=== PATIENT | male | born 1955 | race Caucasian/White ===

== ENCOUNTER 2019-03-27 16:40 | Outpatient (CLI) | payer OTHER ==
[~2019-03-27 16:40] MED LIST: ALLO100T64 PO; ATEN-105 PO; ATEN25TA PO; CEFD300C37 PO; FOLI-17 PO; GABA300C10 PO; HCTZ; HYDR25TA6 PO; LEVO150T5 PO; LEVO25TA2 PO; MELA1TAB6 PO; THIA100T67 PO; TRAZ50TA66 PO; hydro; levothyroxine
== END 2019-03-27 23:59 | disposition home or self-care (01) ==
LOC: RAD 16:40
PROVIDERS: ATTEND Family Medicine
DX: S79.811A Other specified injuries of right hip, initial encounter (principal); K40.90 Unilateral inguinal hernia, without obstruction or gangrene, not specified as recurrent; I70.0 Atherosclerosis of aorta; I12.9 Hypertensive chronic kidney disease with stage 1 through stage 4 chronic kidney disease, or unspecified chronic kidney disease; N18.9 Chronic kidney disease, unspecified; E03.9 Hypothyroidism, unspecified; F10.10 Alcohol abuse, uncomplicated; Z85.21 Personal history of malignant neoplasm of larynx; Z92.21 Personal history of antineoplastic chemotherapy; Z92.3 Personal history of irradiation; Z90.89 Acquired absence of other organs; Z79.899 Other long term (current) drug therapy; Z87.891 Personal history of nicotine dependence; W19.XXXA Unspecified fall, initial encounter; Y93.89 Activity, other specified; Y92.89 Other specified places as the place of occurrence of the external cause; Y99.8 Other external cause status
CPT/HCPCS: 72192

== ENCOUNTER 2019-04-14 17:09 | Emergency (ER) | payer MEDICARE, OTHER ==
[~2019-04-14] VITALS: Ht 175.3 cm; Wt 76.9 kg
--- NOTE | 2019-04-14 19:34 | NUR ---
PT CAME IN CO OF RIGHT MIDDLE FINGER SWELLING. "IT HAS BEEN SWOLLEN FOR ABOUT A YEAR AND RECENTLY IT TRIPLIED IN SIZE. AND PUSS SQUEEZES OUT OF IT". PT IN BED. CALL LIGHT WITHIN REACH.
[2019-04-14] MEDS ORDERED: OXYcodone/APAP 5/325MG TABLET ONE (19:49)
[2019-04-14] MEDS ORDERED: LIDOCAINE-MPF 1%, 5ML ONE ×2 (19:52→21:53)
[2019-04-14] MEDS ORDERED: LIDOCAINE-MPF 1%, 5ML INFIL ONE (20:00)
[2019-04-14] MEDS ORDERED: OXYcodone/APAP 5/325MG TABLET PO ONE (20:00)
[2019-04-14 20:08] LABS: BASOPHILS # (AUTO) 0.03 x10^3/uL (0-0.1); BASOPHILS % (AUTO) 0 % (0-1); EOSINOPHILS # (AUTO) 0.17 x10^3/uL (0-0.4); EOSINOPHILS % (AUTO) 2 % (1-7); LYMPHOCYTES # (AUTO) 1.16 x10^3/uL (1-3.4); LYMPHOCYTES % (AUTO) 13 % (22-44); MD NO; MEAN CORPUSCULAR HEMOGLOBIN 33.9 pg (27.5-34.5); MEAN CORPUSCULAR HGB CONC 33.1 g/dL (33.2-36.2); MEAN CORPUSCULAR VOLUME 102.4 fL (81-97); MEAN PLATELET VOLUME 7.2 fL (7.4-10.4); MONOCYTES # (AUTO) 0.37 x10^3/uL (0.2-0.8); MONOCYTES % (AUTO) 4 % (2-9); NEUTROPHILS # (AUTO) 7.58 x10^3/uL (1.8-6.8); NEUTROPHILS % (AUTO) 81 % (42-75); PLATELET COUNT 409 x10^3/uL (130-400); RED BLOOD COUNT 3.51 x10^6/uL (4.38-5.82); RED CELL DISTRIBUTION WIDTH 12.6 % (9.4-14.8)
[2019-04-14 20:09] LABS: HCT (SEDRATE) 35.5 % (39.2-51.8)
[2019-04-14 20:23] LABS: ALBUMIN 3.2 g/dL (3.4-5.0); ANION GAP 9 mmol/L (5-15); CALCIUM 9.5 mg/dL (8.5-10.1); CHLORIDE 109 mmol/L (98-107); CREATININE 3.01 mg/dL (0.7-1.3)
[2019-04-14 21:32] VITALS: BP 117/70
== END 2019-04-14 22:22 | disposition home or self-care (01) ==
LOC: ED 19:50
DX: M10.041 Idiopathic gout, right hand (principal); I10 Essential (primary) hypertension
CPT/HCPCS: 20600; 36415; 80048; 82040; 84550; 85025; 85651; 86140; 87070; 87205; 89060; 99284

== ENCOUNTER 2020-08-08 08:03 | Inpatient (IN) | payer MEDICARE ==
[~2020-08-08] VITALS: Ht 175.3 cm; Wt 82.9 kg
[~2020-08-08 08:03] MED LIST changes: -FOLI-17 PO; +FOLI1TAB32 PO; +MELA1TAB46 PO; -MELA1TAB6 PO
[2020-08-08] MEDS ORDERED: ASPIRIN 81 MG TABLET CHEW ONE (08:20)
[2020-08-08] MEDS ORDERED: MORPHINE SULFATE 4 MG/ML, 1ML ONE (08:20)
[2020-08-08] MEDS ORDERED: NITROGLYCERIN SINGLE TAB 0.4 MG SL ONE ×2 (08:20→10:32)
--- NOTE | 2020-08-08 08:21 | NUR ---
Pt BIB EMS due to rxn to clyndamyacin for tooth infection. Rxn caused nausea, vomitting, midsternal chest pain. Pt placed on all monitors, EKG done upon arrival to room, pt placed into gown, given warm blanket for comfort. IV placed in LAC by EMS, pt given 4 zofran and tylenol in route. Dr. Hoffman at bedside to discuss POC. CP started yesterday at 4pm and has been intermittent, aggrivated by activity, relieved w/rest, described as sharp and achey, rated 8/10. No other requests at this time.
[2020-08-08] MEDS: NITROGLYCERIN SINGLE TAB 0.4 MG SL PRN ×5 (08:22→15:09)
--- NOTE | 2020-08-08 08:22 | NUR ---
Pt placed on O2 NC @2L for comfort due to CP
[2020-08-08] MEDS ORDERED: MORPHINE SULFATE 4 MG/ML, 1ML IVPush PRN (08:30)
[2020-08-08] MEDS ORDERED: ASPIRIN 81 MG TABLET CHEW PO ONE (08:30)
[2020-08-08] MEDS ORDERED: SODIUM CHLORIDE FLUSH 10ML SYR IVF ONE (08:30)
--- NOTE | 2020-08-08 08:32 | NUR ---
Pt medicated per MAR
--- NOTE | 2020-08-08 08:42 | NUR ---
Pt resting comfortbaly in bed with eyes closed, O2 sat at 98% on RA, VSS, NADN
[2020-08-08 09:37] LABS: MEAN CORPUSCULAR HEMOGLOBIN 30.7 pg (27.5-34.5); MEAN CORPUSCULAR HGB CONC 33.4 g/dL (33.2-36.2); MEAN PLATELET VOLUME 7.5 fL (7.4-10.4); PLATELET COUNT 237 x10^3/uL (130-400); RED BLOOD COUNT 4.73 x10^6/uL (4.38-5.82); RED CELL DISTRIBUTION WIDTH 14.1 % (9.4-14.8)
[2020-08-08 09:52] LABS: ALANINE AMINOTRANSFERASE 31 U/L (12-78); ANION GAP 17 mmol/L (5-15); CALCIUM 10.6 mg/dL (8.5-10.1); CHLORIDE 100 mmol/L (98-107); CREATININE 2.82 mg/dL (0.7-1.3)
[2020-08-08 09:56] LABS: ALKALINE PHOSPHATASE 94 U/L (45-117); BILIRUBIN,TOTAL 0.4 mg/dL (0.2-1.0); TOTAL PROTEIN 8.8 g/dL (6.4-8.2)
[2020-08-08] MEDS ORDERED: AZITHROMYCIN 500 MG in SODIUM CHLORIDE 0.9% 250 ML IVPB ONE (10:00)
[2020-08-08] MEDS ORDERED: SODIUM CHLORIDE FLUSH 10ML SYR IVF PRN (10:00)
[2020-08-08] MEDS ORDERED: CEFTRIAXONE 1,000 MG in DEXTROSE 5% 50 ML IVPB ONE (10:00)
--- NOTE | 2020-08-08 10:00 | NUR ---
TP RN: TROPONIN 21.00 PRIMARY RN AND ERP UPDATED.
[2020-08-08 10:08] LABS: MD YES
[2020-08-08] MEDS ORDERED: HEPARIN 5,000 UNITS/ML, 1ML ONE (10:15)
[2020-08-08] MEDS ORDERED: HEPARIN 25,000 UNITS/250ML PMX 250 ML ONE (10:17)
[2020-08-08 10:19] LABS: BAND#(MANUAL) 0.96 x10^3/uL; BANDS%(MANUAL) 4 % (0-7); LYMPH#(MANUAL) 1.44 x10^3/uL (1-3.4); LYMPHS% (MANUAL) 6 % (22-44); MONOS#(MANUAL) 0.72 x10^3/uL (0.3-2.7); MONOS% (MANUAL) 3 % (2-9); SEG#(MANUAL) 20.88 x10^3/uL (1.8-6.8); SEGS% (MANUAL) 87 % (42-75)
[2020-08-08 10:20] LABS: <PLATELET ESTIMATE> ADEQUATE; <PLT MORPHOLOGY> NORMAL PLT MORPH; <RBC MORPHOLOGY> NORMAL
[2020-08-08] MEDS: HEPARIN 25,000 UNITS/250ML PMX 250 ML IV PRN ×2 (10:30→19:29)
[2020-08-08] MEDS ORDERED: HEPARIN 5,000 UNITS/ML, 1ML IV ONE (10:30)
--- NOTE | 2020-08-08 10:37 | NUR ---
2nd Nitro admin per MD Hoffman
--- NOTE | 2020-08-08 10:50 | NUR ---
Report given to Millicent GARCIA
[2020-08-08] MEDS ORDERED: ONDANSETRON 2MG/ML, 2ML IVPush PRN (11:00)
[2020-08-08] MEDS ORDERED: hydrALAzine 20 MG/ML, 1ML IVPush PRN (11:00)
[2020-08-08] MEDS ORDERED: METHOCARBAMOL 500 MG TABLET PO PRN (11:00)
[2020-08-08] MEDS ORDERED: GUAIFENESIN/DM 200-20MG, 10ML UDC PO PRN (11:00)
[2020-08-08] MEDS ORDERED: TEMAZEPAM 15 MG CAPSULE PO PRN (11:00)
--- NOTE | 2020-08-08 11:06 | NUR ---
125 ml/hr of NS per [facility]
--- NOTE | 2020-08-08 11:07 | NUR ---
reported antiXA of greater than 9 to MD NICHOLAS. YU stated to continue heparin drip per order.
--- NOTE | 2020-08-08 11:08 | NUR ---
TP RN: CRITICAL INTIAL ANTI XA >1.1, REPORTED TO PRIMARY RN AND . PER DO NOT D/C HEPARIN.
[2020-08-08 11:22] VITALS: BP 142/94
[2020-08-08] MEDS: SODIUM CHLORIDE 0.9% 1,000 ML IV SCH ×3 (11:23→17:14)
[2020-08-08] MEDS: morphine SULFATE 10 MG/ML, 1ML IVPush PRN ×2 (13:22→18:45)
[2020-08-08 14:45] VITALS: BP 155/102
[2020-08-08] MEDS ORDERED: NITROGLYCERIN 0.4 MG BOTTLE (25 TABS) SL ONE (14:51)
[2020-08-08 15:00] VITALS: BP 143/96
[2020-08-08 15:07] VITALS: BP 138/91
[2020-08-08 15:17] VITALS: BP 136/92
[2020-08-08] MEDS ORDERED: VERAPAMIL 2.5 MG/ML, 2ML ONE (15:26)
[2020-08-08] MEDS ORDERED: LIDOCAINE-MPF 1%, 5ML ONE (15:26)
[2020-08-08] MEDS ORDERED: MIDAZOLAM 1 MG/ML, 2ML ONE (15:26)
[2020-08-08] MEDS ORDERED: FENTANYL PF 100 MCG/2ML ONE (15:26)
[2020-08-08] MEDS ORDERED: MIDAZOLAM 1 MG/ML, 5ML ONE (15:51)
[2020-08-08] MEDS ORDERED: HEPARIN 1,000 UNITS/ML, 10ML ONE (15:51)
[2020-08-08] MEDS ORDERED: PRASUGREL 10 MG TABLET ONE (15:51)
[2020-08-08 18:55] VITALS: BP 130/86
[2020-08-08 19:13] LABS: ANION GAP 11 mmol/L (5-15); CALCIUM 10.4 mg/dL (8.5-10.1); CHLORIDE 102 mmol/L (98-107)
[2020-08-08] MEDS ORDERED: ATENOLOL 50 MG TABLET ONE (20:38)
[2020-08-08] MEDS: ATORVASTATIN 80 MG TABLET PO SCH (20:41)
[2020-08-08] MEDS: TRAZODONE 50MG TABLET PO SCH (20:41)
[2020-08-08] MEDS: MELATONIN 3 MG TABLET PO SCH (20:42)
[2020-08-08] MEDS: ATENOLOL 100 MG TABLET PO SCH (20:43)
[2020-08-09] MEDS: SODIUM CHLORIDE 0.9% 1,000 ML IV SCH ×3 (01:30→11:30)
[2020-08-09 01:41] VITALS: BP 136/90
[2020-08-09] MEDS: HEPARIN 5,000 UNITS/ML, 1ML IV PRN ×3 (02:33→17:59)
[2020-08-09] MEDS: HEPARIN 25,000 UNITS/250ML PMX 250 ML IV PRN ×2 (02:36→15:14)
[2020-08-09] MEDS: HYDROcodone/APAP 5/325 TABLET PO PRN ×2 (02:38→05:49)
[2020-08-09 05:15] LABS: BASOPHILS % (AUTO) 0 % (0-1); EOSINOPHILS % (AUTO) 0 % (1-7); LYMPHOCYTES % (AUTO) 7 % (22-44); MEAN CORPUSCULAR HEMOGLOBIN 30.5 pg (27.5-34.5); MEAN CORPUSCULAR HGB CONC 33.7 g/dL (33.2-36.2); MONOCYTES % (AUTO) 8 % (2-9); NEUTROPHILS % (AUTO) 85 % (42-75); PLATELET COUNT 259 x10^3/uL (130-400); RED BLOOD COUNT 4.15 x10^6/uL (4.38-5.82); RED CELL DISTRIBUTION WIDTH 14.3 % (9.4-14.8)
[2020-08-09 05:24] LABS: ANION GAP 10 mmol/L (5-15); CALCIUM 9.1 mg/dL (8.5-10.1); CHLORIDE 103 mmol/L (98-107); CREATININE 2.36 mg/dL (0.7-1.3)
[2020-08-09 05:44] LABS: MD NO
[2020-08-09] MEDS: LEVOTHYROXINE 150 MCG TABLET PO SCH (05:49)
[2020-08-09 06:19] VITALS: BP 142/94
[2020-08-09 06:24] VITALS: BP 131/88
[2020-08-09] MEDS ORDERED: NITROGLYCERIN 0.4 MG BOTTLE (25 TABS) SL PRN (06:30)
[2020-08-09] MEDS ORDERED: MAGNESIUM OXIDE 400 MG TABLET PO ONE (07:00)
[2020-08-09 08:43] VITALS: BP 138/96
[2020-08-09] MEDS: ATENOLOL 100 MG TABLET PO SCH (08:45)
[2020-08-09] MEDS ORDERED: NITROGLYCERIN/D5W PMX 250 ML IV PRN ×2 (09:30→12:00)
[2020-08-09] MEDS ORDERED: DOXYCYCLINE 100MG TABLET PO SCH (10:30)
[2020-08-09] MEDS ORDERED: FUROSEMIDE 20 MG/2 ML ONE (11:41)
[2020-08-09] MEDS ORDERED: PHARMACY MAY ADJ FOR RENAL FX MC PRN (12:00)
[2020-08-09] MEDS ORDERED: FUROSEMIDE 20 MG/2 ML IV ONE (12:00)
[2020-08-09] MEDS ORDERED: FUROSEMIDE 40 MG/4 ML ONE (12:15)
[2020-08-09] MEDS ORDERED: GLUCAGON 1 MG IM PRN (12:30)
[2020-08-09] MEDS ORDERED: DEXTROSE 50%, 50ML SYRINGE IVPush PRN (12:30)
[2020-08-09] MEDS ORDERED: FUROSEMIDE 100 MG/10 ML IV ONE (12:30)
[2020-08-09] MEDS ORDERED: DEXTROSE 4 GM TAB.CHEW PO PRN (12:30)
[2020-08-09] MEDS: MEROPENEM 1 GM in SODIUM CHLORIDE 0.9% 100 ML IV SCH (12:37)
[2020-08-09] MEDS: INSULIN LISPRO 100 UNITS/ML, PEN SQ-INSULIN SCH ×2 (12:47→18:57)
[2020-08-09] MEDS ORDERED: MAGNESIUM SULFATE PMX 2GM/50ML 50 ML IV ONE (13:00)
[2020-08-09] MEDS: LINEZOLID PMX 600MG/300ML 300 ML IV SCH (13:11)
[2020-08-09] MEDS: ACETAMINOPHEN 325 MG TABLET PO PRN (16:32)
[2020-08-09] MEDS ORDERED: CARVEDILOL 6.25 MG TABLET ONE (17:55)
[2020-08-09] MEDS: CARVEDILOL 25 MG TABLET PO SCH (18:09)
[2020-08-09] MEDS: ATORVASTATIN 80 MG TABLET PO SCH (20:34)
[2020-08-09] MEDS: SODIUM CHLORIDE FLUSH 10ML SYR IVF SCH (20:35)
[2020-08-09] MEDS: MELATONIN 3 MG TABLET PO SCH (20:40)
[2020-08-09] MEDS: TRAZODONE 50MG TABLET PO SCH (21:00)
[2020-08-10] MEDS: MEROPENEM 1 GM in SODIUM CHLORIDE 0.9% 100 ML IV SCH ×2 (00:12→12:28)
[2020-08-10] MEDS: INSULIN LISPRO 100 UNITS/ML, PEN SQ-INSULIN SCH ×4 (01:02→19:00)
[2020-08-10] MEDS: LINEZOLID PMX 600MG/300ML 300 ML IV SCH ×2 (01:02→13:13)
[2020-08-10 04:40] LABS: ANION GAP 9 mmol/L (5-15); BASOPHILS % (AUTO) 0 % (0-1); CALCIUM 8.4 mg/dL (8.5-10.1); CHLORIDE 99 mmol/L (98-107); CREATININE 2.67 mg/dL (0.7-1.3); EOSINOPHILS % (AUTO) 0 % (1-7); LYMPHOCYTES % (AUTO) 12 % (22-44); MEAN CORPUSCULAR HEMOGLOBIN 30.6 pg (27.5-34.5); MEAN CORPUSCULAR HGB CONC 33.8 g/dL (33.2-36.2); MEAN PLATELET VOLUME 7.5 fL (7.4-10.4); MONOCYTES % (AUTO) 9 % (2-9); NEUTROPHILS % (AUTO) 79 % (42-75); PLATELET COUNT 233 x10^3/uL (130-400); RED BLOOD COUNT 3.79 x10^6/uL (4.38-5.82); RED CELL DISTRIBUTION WIDTH 13.9 % (9.4-14.8)
[2020-08-10 04:48] LABS: MD NO
[2020-08-10] MEDS: LEVOTHYROXINE 150 MCG TABLET PO SCH (06:12)
[2020-08-10] MEDS: CARVEDILOL 25 MG TABLET PO SCH (06:13)
[2020-08-10] MEDS: HEPARIN 5,000 UNITS/ML, 1ML IV PRN ×3 (06:53→22:07)
[2020-08-10] MEDS: ASPIRIN 81 MG TABLET EC PO SCH (09:14)
[2020-08-10] MEDS: SODIUM CHLORIDE FLUSH 10ML SYR IVF SCH ×2 (09:16→20:51)
[2020-08-10] MEDS: HYDROcodone/APAP 5/325 TABLET PO PRN (10:33)
[2020-08-10 10:54] LABS: MICROSCOPIC AUTO
[2020-08-10] MEDS: HEPARIN 25,000 UNITS/250ML PMX 250 ML IV PRN (12:30)
[2020-08-10] MEDS: CARVEDILOL 3.125 MG TABLET PO SCH (17:49)
[2020-08-10] MEDS: ATORVASTATIN 80 MG TABLET PO SCH (20:51)
[2020-08-10] MEDS: TRAZODONE 50MG TABLET PO SCH (20:51)
[2020-08-10] MEDS: MELATONIN 3 MG TABLET PO SCH (20:51)
[2020-08-11] MEDS: MEROPENEM 1 GM in SODIUM CHLORIDE 0.9% 100 ML IV SCH (00:09)
[2020-08-11] MEDS: LINEZOLID PMX 600MG/300ML 300 ML IV SCH (00:44)
[2020-08-11] MEDS: INSULIN LISPRO 100 UNITS/ML, PEN SQ-INSULIN SCH ×4 (00:46→20:47)
[2020-08-11 04:32] LABS: BASOPHILS % (AUTO) 0 % (0-1); EOSINOPHILS % (AUTO) 0 % (1-7); LYMPHOCYTES % (AUTO) 11 % (22-44); MD NO; MEAN CORPUSCULAR HEMOGLOBIN 30.3 pg (27.5-34.5); MEAN CORPUSCULAR HGB CONC 33.8 g/dL (33.2-36.2); MEAN PLATELET VOLUME 7.8 fL (7.4-10.4); MONOCYTES % (AUTO) 9 % (2-9); NEUTROPHILS % (AUTO) 79 % (42-75); PLATELET COUNT 248 x10^3/uL (130-400); RED BLOOD COUNT 4.04 x10^6/uL (4.38-5.82)
[2020-08-11 04:38] LABS: ANION GAP 9 mmol/L (5-15); CALCIUM 8.4 mg/dL (8.5-10.1); CHLORIDE 100 mmol/L (98-107); CREATININE 2.31 mg/dL (0.7-1.3)
[2020-08-11] MEDS: CARVEDILOL 3.125 MG TABLET PO SCH ×2 (06:03→16:46)
[2020-08-11] MEDS: LEVOTHYROXINE 150 MCG TABLET PO SCH (06:03)
[2020-08-11] MEDS: ASPIRIN 81 MG TABLET EC PO SCH (06:03)
[2020-08-11] MEDS: HEPARIN 25,000 UNITS/250ML PMX 250 ML IV PRN ×2 (06:06→23:29)
[2020-08-11] MEDS: SODIUM CHLORIDE FLUSH 10ML SYR IVF SCH ×2 (08:42→21:00)
[2020-08-11] MEDS ORDERED: FUROSEMIDE 100 MG/10 ML IV ONE (09:00)
[2020-08-11] MEDS ORDERED: POTASSIUM CHLORIDE 20 MEQ TAB.ER.PRT PO SCH (09:30)
[2020-08-11] MEDS: FUROSEMIDE 100 MG in SODIUM CHLORIDE 0.9% 90 ML IV PRN ×2 (10:13→23:32)
[2020-08-11] MEDS: HEPARIN 5,000 UNITS/ML, 1ML IV PRN (11:46)
[2020-08-11] MEDS ORDERED: NITROGLYCERIN/D5W PMX 250 ML IV PRN (12:00)
[2020-08-11] MEDS ORDERED: AMPICILLIN/SULBACTAM 1,500 MG in SODIUM CHLORIDE 0.9% 50 ML IV SCH (12:30)
[2020-08-11] MEDS: MEROPENEM 500 MG in SODIUM CHLORIDE 0.9% 100 ML IV SCH (13:17)
[2020-08-11] MEDS: HYDROcodone/APAP 5/325 TABLET PO PRN ×2 (15:41→22:46)
[2020-08-11] MEDS: KSCALE TO 4.0 IV SCH ×2 (18:33→19:00)
[2020-08-11] MEDS: ATORVASTATIN 80 MG TABLET PO SCH (20:46)
[2020-08-11] MEDS: TRAZODONE 50MG TABLET PO SCH (20:46)
[2020-08-11] MEDS: MELATONIN 3 MG TABLET PO SCH (20:47)
[2020-08-11] MEDS ORDERED: POTASSIUM CHLORIDE PMX 100 ML IV ONE (21:00)
[2020-08-12] MEDS: MEROPENEM 500 MG in SODIUM CHLORIDE 0.9% 100 ML IV SCH ×2 (00:48→13:38)
[2020-08-12] MEDS: KSCALE TO 4.0 IV SCH ×4 (01:23→20:10)
[2020-08-12] MEDS ORDERED: POTASSIUM CHLORIDE PMX 100 ML IV ONE ×3 (01:30→20:00)
[2020-08-12] MEDS: INSULIN LISPRO 100 UNITS/ML, PEN SQ-INSULIN SCH ×4 (03:00→19:58)
[2020-08-12] MEDS: LEVOTHYROXINE 150 MCG TABLET PO SCH (05:53)
[2020-08-12] MEDS: ASPIRIN 81 MG TABLET EC PO SCH (05:53)
[2020-08-12 06:27] LABS: BASOPHILS % (AUTO) 0 % (0-1); EOSINOPHILS % (AUTO) 1 % (1-7); LYMPHOCYTES % (AUTO) 16 % (22-44); MEAN CORPUSCULAR HEMOGLOBIN 30.2 pg (27.5-34.5); MEAN CORPUSCULAR HGB CONC 33.5 g/dL (33.2-36.2); MEAN PLATELET VOLUME 7.7 fL (7.4-10.4); MONOCYTES % (AUTO) 10 % (2-9); NEUTROPHILS % (AUTO) 73 % (42-75); PLATELET COUNT 275 x10^3/uL (130-400); RED BLOOD COUNT 3.74 x10^6/uL (4.38-5.82); RED CELL DISTRIBUTION WIDTH 14.1 % (9.4-14.8)
[2020-08-12 06:28] LABS: MD NO
[2020-08-12 06:38] LABS: ANION GAP 10 mmol/L (5-15); CALCIUM 8.9 mg/dL (8.5-10.1); CHLORIDE 101 mmol/L (98-107)
[2020-08-12 06:40] LABS: CREATININE 2.26 mg/dL (0.7-1.3)
[2020-08-12] MEDS ORDERED: COLCHICINE 0.6 MG CAPSULE PO ONE (08:00)
[2020-08-12] MEDS ORDERED: CARVEDILOL 6.25 MG TABLET ONE (08:52)
[2020-08-12] MEDS ORDERED: AMIODARONE 450 MG in DEXTROSE 5% 241 ML IV PRN (09:00)
[2020-08-12] MEDS ORDERED: AMIODARONE 300 MG in DEXTROSE 5% 100 ML IV ONE (09:00)
[2020-08-12] MEDS: morphine SULFATE 10 MG/ML, 1ML IVPush PRN (09:08)
[2020-08-12] MEDS: LIDODERM 5% PATCH TD SCH (09:08)
[2020-08-12] MEDS ORDERED: METOPROLOL 1 MG/ML, 5ML ONE (09:09)
[2020-08-12] MEDS: SODIUM CHLORIDE FLUSH 10ML SYR IVF SCH ×2 (09:09→21:20)
[2020-08-12] MEDS ORDERED: DIGOXIN 0.25 MG/ML, 2ML ONE ×2 (09:12→14:08)
[2020-08-12] MEDS ORDERED: FILTER 0.22 MICRON FOR AMIODARONE IV PRN (09:30)
[2020-08-12] MEDS ORDERED: METOPROLOL 1 MG/ML, 5ML IVPush ONE ×2 (09:30→10:30)
[2020-08-12] MEDS ORDERED: DIGOXIN 0.25 MG/ML, 2ML IVPush ONE ×2 (09:30→14:30)
[2020-08-12] MEDS ORDERED: AMIODARONE 150 MG in DEXTROSE 5% 100 ML IV ONE (12:00)
[2020-08-12] MEDS: HEPARIN 25,000 UNITS/250ML PMX 250 ML IV PRN (13:02)
[2020-08-12] MEDS: AMIODARONE 450 MG in DEXTROSE 5% 241 ML IV PRN (16:02)
[2020-08-12] MEDS: MEROPENEM 500 MG in SODIUM CHLORIDE 0.9% 50 ML IV SCH (16:22)
[2020-08-12] MEDS: CARVEDILOL 6.25 MG TABLET PO SCH (18:43)
[2020-08-12] MEDS: FUROSEMIDE 100 MG in SODIUM CHLORIDE 0.9% 90 ML IV PRN (20:10)
[2020-08-12] MEDS: TRAZODONE 50MG TABLET PO SCH (21:20)
[2020-08-12] MEDS: ATORVASTATIN 80 MG TABLET PO SCH (21:21)
[2020-08-12] MEDS: MELATONIN 3 MG TABLET PO SCH (21:21)
[2020-08-13] MEDS: MEROPENEM 500 MG in SODIUM CHLORIDE 0.9% 50 ML IV SCH (01:58)
[2020-08-13] MEDS: KSCALE TO 4.0 IV SCH ×4 (02:00→23:00)
[2020-08-13] MEDS: INSULIN LISPRO 100 UNITS/ML, PEN SQ-INSULIN SCH ×4 (02:18→20:44)
[2020-08-13] MEDS: ASPIRIN 81 MG TABLET EC PO SCH (05:23)
[2020-08-13] MEDS: CARVEDILOL 6.25 MG TABLET PO SCH ×3 (05:24→23:10)
[2020-08-13] MEDS: LEVOTHYROXINE 150 MCG TABLET PO SCH (05:24)
[2020-08-13 05:44] LABS: BASOPHILS % (AUTO) 0 % (0-1); EOSINOPHILS % (AUTO) 2 % (1-7); LYMPHOCYTES % (AUTO) 16 % (22-44); MEAN CORPUSCULAR HEMOGLOBIN 30.7 pg (27.5-34.5); MEAN PLATELET VOLUME 7.4 fL (7.4-10.4); MONOCYTES % (AUTO) 10 % (2-9); NEUTROPHILS % (AUTO) 71 % (42-75); PLATELET COUNT 277 x10^3/uL (130-400); RED BLOOD COUNT 3.63 x10^6/uL (4.38-5.82); RED CELL DISTRIBUTION WIDTH 13.8 % (9.4-14.8)
[2020-08-13 05:51] LABS: ANION GAP 10 mmol/L (5-15); CALCIUM 9.2 mg/dL (8.5-10.1); CHLORIDE 97 mmol/L (98-107); CREATININE 2.43 mg/dL (0.7-1.3)
[2020-08-13 05:53] LABS: MD NO
[2020-08-13] MEDS: FUROSEMIDE 100 MG in SODIUM CHLORIDE 0.9% 90 ML IV PRN (06:34)
[2020-08-13] MEDS: AMIODARONE 450 MG in DEXTROSE 5% 241 ML IV PRN ×2 (06:35→23:12)
[2020-08-13] MEDS ORDERED: PRASUGREL 10 MG TABLET PO ONE (09:30)
[2020-08-13] MEDS: LIDODERM 5% PATCH TD SCH (09:49)
[2020-08-13] MEDS: SODIUM CHLORIDE FLUSH 10ML SYR IVF SCH ×2 (10:34→20:42)
[2020-08-13] MEDS ORDERED: POTASSIUM CHLORIDE PMX 100 ML IV ONE (15:00)
[2020-08-13] MEDS: PRASUGREL 10 MG TABLET PO SCH (15:54)
[2020-08-13] MEDS: ATORVASTATIN 80 MG TABLET PO SCH (20:42)
[2020-08-13] MEDS: HYDROcodone/APAP 5/325 TABLET PO PRN (20:42)
[2020-08-13] MEDS: TRAZODONE 50MG TABLET PO SCH (23:09)
[2020-08-13] MEDS: MELATONIN 3 MG TABLET PO SCH (23:10)
[2020-08-14] MEDS: HEPARIN 25,000 UNITS/250ML PMX 250 ML IV PRN ×2 (02:22→21:31)
[2020-08-14] MEDS: FUROSEMIDE 100 MG in SODIUM CHLORIDE 0.9% 90 ML IV PRN (04:04)
[2020-08-14] MEDS: KSCALE TO 4.0 IV SCH ×4 (05:00→22:45)
[2020-08-14] MEDS: LEVOTHYROXINE 150 MCG TABLET PO SCH (05:28)
[2020-08-14] MEDS: ASPIRIN 81 MG TABLET EC PO SCH (05:28)
[2020-08-14] MEDS: INSULIN LISPRO 100 UNITS/ML, PEN SQ-INSULIN SCH ×4 (07:00→20:08)
[2020-08-14] MEDS ORDERED: POTASSIUM CHLORIDE PMX 100 ML IV ONE ×2 (07:00→13:30)
[2020-08-14 07:51] LABS: ANION GAP 13 mmol/L (5-15); CALCIUM 9.7 mg/dL (8.5-10.1); CHLORIDE 95 mmol/L (98-107)
[2020-08-14] MEDS: CARVEDILOL 6.25 MG TABLET PO SCH (08:11)
[2020-08-14] MEDS: PRASUGREL 10 MG TABLET PO SCH (08:11)
[2020-08-14] MEDS: LIDODERM 5% PATCH TD SCH (08:12)
[2020-08-14] MEDS: SODIUM CHLORIDE FLUSH 10ML SYR IVF SCH ×2 (08:12→19:50)
[2020-08-14] MEDS ORDERED: PRASUGREL 10 MG TABLET PO SCH (09:00)
[2020-08-14] MEDS: CARVEDILOL 12.5 MG TABLET PO SCH ×2 (09:00→20:10)
[2020-08-14] MEDS: AMIODARONE 200 MG TABLET PO SCH ×2 (09:57→20:10)
[2020-08-14] MEDS: ATORVASTATIN 80 MG TABLET PO SCH (20:09)
[2020-08-14] MEDS: HYDROcodone/APAP 5/325 TABLET PO PRN (20:09)
[2020-08-14] MEDS: MELATONIN 3 MG TABLET PO SCH (22:44)
[2020-08-14] MEDS: TRAZODONE 50MG TABLET PO SCH (22:44)
[2020-08-15] MEDS: LEVOTHYROXINE 150 MCG TABLET PO SCH (05:01)
[2020-08-15] MEDS: HYDROcodone/APAP 5/325 TABLET PO PRN ×4 (05:01→21:28)
[2020-08-15] MEDS: ASPIRIN 81 MG TABLET EC PO SCH (05:02)
[2020-08-15 05:24] LABS: ANION GAP 11 mmol/L (5-15); CALCIUM 9.5 mg/dL (8.5-10.1); CHLORIDE 95 mmol/L (98-107)
[2020-08-15] MEDS: KSCALE TO 4.0 IV SCH (05:24)
[2020-08-15 05:33] LABS: BASOPHILS % (AUTO) 0 % (0-1); EOSINOPHILS % (AUTO) 2 % (1-7); LYMPHOCYTES % (AUTO) 18 % (22-44); MEAN CORPUSCULAR HEMOGLOBIN 30.6 pg (27.5-34.5); MEAN PLATELET VOLUME 7.6 fL (7.4-10.4); MONOCYTES % (AUTO) 9 % (2-9); NEUTROPHILS % (AUTO) 70 % (42-75); PLATELET COUNT 403 x10^3/uL (130-400); RED BLOOD COUNT 4.03 x10^6/uL (4.38-5.82); RED CELL DISTRIBUTION WIDTH 13.9 % (9.4-14.8)
[2020-08-15 05:38] LABS: MD NO
[2020-08-15] MEDS: INSULIN LISPRO 100 UNITS/ML, PEN SQ-INSULIN SCH ×4 (07:00→21:00)
[2020-08-15] MEDS: CARVEDILOL 12.5 MG TABLET PO SCH ×2 (07:42→21:00)
[2020-08-15] MEDS: AMIODARONE 200 MG TABLET PO SCH ×2 (07:42→21:28)
[2020-08-15] MEDS: PRASUGREL 10 MG TABLET PO SCH (07:42)
[2020-08-15] MEDS: LIDODERM 5% PATCH TD SCH (07:46)
[2020-08-15] MEDS: SODIUM CHLORIDE FLUSH 10ML SYR IVF SCH ×2 (10:26→21:33)
[2020-08-15] MEDS ORDERED: BIVALIRUDIN 250 MG ONE ×2 (10:27)
[2020-08-15] MEDS ORDERED: LIDOCAINE 1%, 20ML ONE (10:44)
[2020-08-15] MEDS ORDERED: MIDAZOLAM 1 MG/ML, 2ML ONE (10:57)
[2020-08-15] MEDS ORDERED: PROPOFOL 10 MG/ML, 20ML ONE ×2 (10:57→20:49)
[2020-08-15] MEDS ORDERED: ROCURONIUM 10MG/ML,5ML ONE (10:57)
[2020-08-15] MEDS ORDERED: FENTANYL PF 250 MCG/5ML ONE (10:57)
[2020-08-15] MEDS ORDERED: GLYCOPYRROLATE 0.2MG/1ML, 5ML ONE (10:58)
[2020-08-15] MEDS ORDERED: PHENYLEPHRINE 10 MG/ML ONE (10:58)
[2020-08-15] MEDS ORDERED: EPINEPHRINE 1 MG/ML, 1ML ONE ×5 (11:25)
[2020-08-15] MEDS ORDERED: VASOPRESSIN 20 UNIT/ML, 1ML ONE (11:29)
[2020-08-15] MEDS ORDERED: NEOSTIGMINE 1 MG/ML, 10ML ONE (12:38)
[2020-08-15] MEDS: PANTOPRAZOLE 40 MG IV IVPush SCH (17:38)
[2020-08-15 18:40] LABS: OCCULT BLOOD POSITIVE (NEGATIVE)
[2020-08-15] MEDS ORDERED: DEXAMETHASONE 4 MG/ML, 1ML ONE (20:49)
[2020-08-15] MEDS ORDERED: SUCCINYLCHOLINE 20 MG/ML, 10ML ONE (20:49)
[2020-08-15] MEDS ORDERED: CEFAZOLIN 1,000 MG ONE (20:49)
[2020-08-15] MEDS ORDERED: ROCURONIUM 10 MG/ML,10ML ONE (20:49)
[2020-08-15] MEDS ORDERED: ONDANSETRON 2MG/ML, 2ML ONE (20:49)
[2020-08-15] MEDS: ATORVASTATIN 80 MG TABLET PO SCH (21:28)
[2020-08-15] MEDS: MELATONIN 3 MG TABLET PO SCH (21:28)
[2020-08-15] MEDS: TRAZODONE 50MG TABLET PO SCH (21:33)
[2020-08-16] MEDS: PANTOPRAZOLE 40 MG IV IVPush SCH ×2 (05:02→17:10)
[2020-08-16] MEDS: ASPIRIN 81 MG TABLET EC PO SCH (05:02)
[2020-08-16] MEDS: LEVOTHYROXINE 150 MCG TABLET PO SCH (05:02)
[2020-08-16 05:29] LABS: ALBUMIN 3.1 g/dL (3.4-5.0); ANION GAP 11 mmol/L (5-15); CALCIUM 8.9 mg/dL (8.5-10.1); CHLORIDE 100 mmol/L (98-107)
[2020-08-16 05:31] LABS: BASOPHILS % (AUTO) 0 % (0-1); EOSINOPHILS % (AUTO) 2 % (1-7); LYMPHOCYTES % (AUTO) 15 % (22-44); MEAN CORPUSCULAR HGB CONC 33.3 g/dL (33.2-36.2); MEAN PLATELET VOLUME 7.4 fL (7.4-10.4); MONOCYTES % (AUTO) 9 % (2-9); NEUTROPHILS % (AUTO) 74 % (42-75); PLATELET COUNT 376 x10^3/uL (130-400); RED BLOOD COUNT 3.55 x10^6/uL (4.38-5.82); RED CELL DISTRIBUTION WIDTH 14.3 % (9.4-14.8)
[2020-08-16 05:32] LABS: ALANINE AMINOTRANSFERASE 74 U/L (12-78); ALKALINE PHOSPHATASE 89 U/L (45-117); BILIRUBIN,TOTAL 0.5 mg/dL (0.2-1.0); CREATININE 2.72 mg/dL (0.7-1.3); TOTAL PROTEIN 6.9 g/dL (6.4-8.2)
[2020-08-16 05:33] LABS: MD NO
[2020-08-16] MEDS: LIDODERM 5% PATCH TD SCH (08:00)
[2020-08-16] MEDS: AMIODARONE 200 MG TABLET PO SCH ×2 (08:34→21:11)
[2020-08-16] MEDS: PRASUGREL 10 MG TABLET PO SCH (08:34)
[2020-08-16] MEDS: HYDROcodone/APAP 5/325 TABLET PO PRN (09:35)
[2020-08-16] MEDS: CARVEDILOL 12.5 MG TABLET PO SCH ×2 (09:35→21:10)
[2020-08-16] MEDS: SODIUM CHLORIDE FLUSH 10ML SYR IVF SCH ×2 (09:35→21:00)
[2020-08-16] MEDS: SUCRALFATE 1 GM/10 ML UDC PO SCH ×3 (09:35→21:11)
[2020-08-16 20:00] VITALS: BP 122/80
[2020-08-16] MEDS: TRAZODONE 50MG TABLET PO SCH (21:10)
[2020-08-16] MEDS: ATORVASTATIN 80 MG TABLET PO SCH (21:11)
[2020-08-16] MEDS: MELATONIN 3 MG TABLET PO SCH (21:11)
[2020-08-16] MEDS: ACETAMINOPHEN 325 MG TABLET PO PRN (21:18)
[2020-08-17 04:13] VITALS: BP 100/63
[2020-08-17 05:01] LABS: BASOPHILS % (AUTO) 0 % (0-1); EOSINOPHILS % (AUTO) 4 % (1-7); LYMPHOCYTES % (AUTO) 15 % (22-44); MEAN CORPUSCULAR HEMOGLOBIN 31.1 pg (27.5-34.5); MEAN CORPUSCULAR HGB CONC 34.2 g/dL (33.2-36.2); MEAN PLATELET VOLUME 7.5 fL (7.4-10.4); MONOCYTES % (AUTO) 10 % (2-9); NEUTROPHILS % (AUTO) 71 % (42-75); PLATELET COUNT 367 x10^3/uL (130-400); RED BLOOD COUNT 3.53 x10^6/uL (4.38-5.82)
[2020-08-17 05:12] LABS: ANION GAP 8 mmol/L (5-15); CALCIUM 9.1 mg/dL (8.5-10.1); CHLORIDE 104 mmol/L (98-107); CREATININE 2.65 mg/dL (0.7-1.3)
[2020-08-17 05:13] LABS: MD NO
[2020-08-17] MEDS: ASPIRIN 81 MG TABLET EC PO SCH (06:05)
[2020-08-17] MEDS: LEVOTHYROXINE 150 MCG TABLET PO SCH (06:06)
[2020-08-17] MEDS: SUCRALFATE 1 GM/10 ML UDC PO SCH ×4 (06:06→22:27)
[2020-08-17 07:38] VITALS: BP 114/75
[2020-08-17] MEDS: LIDODERM 5% PATCH TD SCH (08:00)
[2020-08-17] MEDS: BUMETANIDE 1 MG TABLET PO SCH (09:58)
[2020-08-17] MEDS: AMIODARONE 200 MG TABLET PO SCH ×2 (09:58→22:26)
[2020-08-17] MEDS: PRASUGREL 10 MG TABLET PO SCH (09:58)
[2020-08-17] MEDS: CARVEDILOL 12.5 MG TABLET PO SCH ×2 (09:59→22:26)
[2020-08-17] MEDS: SODIUM CHLORIDE FLUSH 10ML SYR IVF SCH ×2 (10:07→22:26)
[2020-08-17] MEDS: PANTOPRAZOLE 40 MG IV IVPush SCH (10:08)
[2020-08-17 13:32] VITALS: BP 103/69
[2020-08-17] MEDS: PANTOPRAZOLE 40MG TABLET PO SCH (16:44)
[2020-08-17 19:03] VITALS: BP 138/83
[2020-08-17] MEDS: ATORVASTATIN 80 MG TABLET PO SCH (22:26)
[2020-08-17] MEDS: TRAZODONE 50MG TABLET PO SCH (22:27)
[2020-08-17] MEDS: MELATONIN 3 MG TABLET PO SCH (22:27)
[2020-08-17] MEDS: DOCUSATE 100 MG CAPSULE PO PRN (22:29)
[2020-08-18 00:18] VITALS: BP 105/70
[2020-08-18 04:45] LABS: BASOPHILS % (AUTO) 0 % (0-1); EOSINOPHILS % (AUTO) 4 % (1-7); LYMPHOCYTES % (AUTO) 16 % (22-44); MEAN CORPUSCULAR HEMOGLOBIN 30.7 pg (27.5-34.5); MEAN CORPUSCULAR HGB CONC 33.5 g/dL (33.2-36.2); MEAN PLATELET VOLUME 7.6 fL (7.4-10.4); MONOCYTES % (AUTO) 9 % (2-9); NEUTROPHILS % (AUTO) 70 % (42-75); PLATELET COUNT 393 x10^3/uL (130-400); RED CELL DISTRIBUTION WIDTH 13.9 % (9.4-14.8)
[2020-08-18 04:48] LABS: ANION GAP 9 mmol/L (5-15); CALCIUM 9.1 mg/dL (8.5-10.1); CHLORIDE 102 mmol/L (98-107); CREATININE 2.65 mg/dL (0.7-1.3); MD NO
[2020-08-18] MEDS: ACETAMINOPHEN 325 MG TABLET PO PRN (05:58)
[2020-08-18] MEDS: SUCRALFATE 1 GM/10 ML UDC PO SCH (05:58)
[2020-08-18] MEDS: LEVOTHYROXINE 150 MCG TABLET PO SCH (05:59)
[2020-08-18] MEDS: ASPIRIN 81 MG TABLET EC PO SCH (05:59)
[2020-08-18] MEDS: DOCUSATE 100 MG CAPSULE PO PRN (06:01)
[2020-08-18] MEDS: PANTOPRAZOLE 40MG TABLET PO SCH (06:01)
[2020-08-18 07:38] VITALS: BP 106/69
[2020-08-18] MEDS: LIDODERM 5% PATCH TD SCH (08:00)
[2020-08-18] MEDS: SODIUM CHLORIDE FLUSH 10ML SYR IVF SCH (09:00)
[2020-08-18] MEDS ORDERED: ASPI81TA45 PO (09:25)
[2020-08-18] MEDS ORDERED: PANT40TA6 PO (09:25)
[2020-08-18] MEDS ORDERED: HYDR-3341 PO (09:25)
[2020-08-18] MEDS ORDERED: PRAS10TA4 PO (09:25)
[2020-08-18] MEDS ORDERED: BUME1TAB21 PO (09:25)
[2020-08-18] MEDS ORDERED: CARV12.52 PO (09:25)
[2020-08-18] MEDS ORDERED: ATOR-2 PO (09:25)
[2020-08-18] MEDS ORDERED: AMIO200T42 PO (09:25)
[2020-08-18] MEDS ORDERED: SUCR1ORA5 PO (09:25)
[2020-08-18 09:35] VITALS: BP 124/86
[2020-08-18] MEDS: BUMETANIDE 1 MG TABLET PO SCH (09:39)
[2020-08-18] MEDS: CARVEDILOL 12.5 MG TABLET PO SCH (09:39)
[2020-08-18] MEDS: PRASUGREL 10 MG TABLET PO SCH (09:39)
[2020-08-18] MEDS: AMIODARONE 200 MG TABLET PO SCH (09:40)
== END 2020-08-18 11:13 | disposition home or self-care (01) | DRG 853 ==
LOC: ED 08:53 → 5SO 10:59 → ICU 08-09 10:51 → CCU 08-12 14:38 → 5SO 08-16 13:33 → DCLOUNGE 08-18 11:00
PROVIDERS: ADMIT Internal Medicine; ATTEND Internal Medicine
PROC: 4A023N7 Measurement of Cardiac Sampling and Pressure, Left Heart, Percutaneous Approach (ICD-10-PCS; principal; 2020-08-08)
PROC: B2111ZZ Fluoroscopy of Multiple Coronary Arteries using Low Osmolar Contrast (ICD-10-PCS; 2020-08-08)
PROC: 02HV33Z Insertion of Infusion Device into Superior Vena Cava, Percutaneous Approach (ICD-10-PCS; 2020-08-11)
PROC: B548ZZA Ultrasonography of Superior Vena Cava, Guidance (ICD-10-PCS; 2020-08-11)
PROC: B2131ZZ Fluoroscopy of Multiple Coronary Artery Bypass Grafts using Low Osmolar Contrast (ICD-10-PCS; 2020-08-15)
PROC: 027135Z Dilation of Coronary Artery, Two Arteries with Two Drug-eluting Intraluminal Devices, Percutaneous Approach (ICD-10-PCS; 2020-08-15)
PROC: B41J1ZZ Fluoroscopy of Other Lower Arteries using Low Osmolar Contrast (ICD-10-PCS; 2020-08-15)
DX: A41.9 Sepsis, unspecified organism (principal); J96.01 Acute respiratory failure with hypoxia; I21.4 Non-ST elevation (NSTEMI) myocardial infarction; J15.9 Unspecified bacterial pneumonia; I13.0 Hypertensive heart and chronic kidney disease with heart failure and stage 1 through stage 4 chronic kidney disease, or unspecified chronic kidney disease; I50.42 Chronic combined systolic (congestive) and diastolic (congestive) heart failure; N17.9 Acute kidney failure, unspecified; E87.1 Hypo-osmolality and hyponatremia; E87.2 Acidosis; I48.92 Unspecified atrial flutter; K92.2 Gastrointestinal hemorrhage, unspecified; N18.30 Chronic kidney disease, stage 3 unspecified; C14.0 Malignant neoplasm of pharynx, unspecified; D64.9 Anemia, unspecified; E03.9 Hypothyroidism, unspecified; E78.5 Hyperlipidemia, unspecified; E86.0 Dehydration; E86.1 Hypovolemia; D72.829 Elevated white blood cell count, unspecified; F12.90 Cannabis use, unspecified, uncomplicated; I25.10 Atherosclerotic heart disease of native coronary artery without angina pectoris; I25.5 Ischemic cardiomyopathy; I48.91 Unspecified atrial fibrillation; I50.82 Biventricular heart failure; I65.23 Occlusion and stenosis of bilateral carotid arteries; I70.0 Atherosclerosis of aorta; E83.42 Hypomagnesemia; I73.9 Peripheral vascular disease, unspecified; I65.29 Occlusion and stenosis of unspecified carotid artery; M10.9 Gout, unspecified; M70.51 Other bursitis of knee, right knee; Z80.9 Family history of malignant neoplasm, unspecified; Z82.5 Family history of asthma and other chronic lower respiratory diseases; Z85.818 Personal history of malignant neoplasm of other sites of lip, oral cavity, and pharynx; Z85.89 Personal history of malignant neoplasm of other organs and systems; Z87.891 Personal history of nicotine dependence; Z92.21 Personal history of antineoplastic chemotherapy; Z92.3 Personal history of irradiation; Z95.1 Presence of aortocoronary bypass graft; Z88.1 Allergy status to other antibiotic agents; Z88.8 Allergy status to other drugs, medicaments and biological substances; Z79.82 Long term (current) use of aspirin
CPT/HCPCS: 36415; 36573; 70498; 71045; 80048; 80053; 81001; 82272; 82570; 82962; 83036; 83605; 83690; 83735; 84100; 84132; 84145; 84300; 84484; 85014; 85018; 85025; 85520; 87040; 87081; 92920; 93005; 93454; 93458; 93880; 93970; 99156; 99285; C1760; C1769; C1894; C8929; C9600; G0378; J0171; J0456; J0583; J0690; J0696; J1100; J1644; J1940; J2020; J2185; J2250; J2405; J2704; J2710; J3010; J3480; J7060; Q9957; C1725; C1751; C1874; C1887; C9113; J0282; J0330; J1160; J2270; J2370; J3475; J7030; J7050; J7512; Q9967

== ENCOUNTER → 2020-12-04 | Outpatient (CLI) | payer MEDICARE ==
[~2020-12-04] MED LIST changes: +AMIO200T42 PO; +ASPI81TA45 PO; +ATOR-2 PO; +BUME1TAB21 PO; +CARV12.52 PO; +HYDR-3341 PO; +PANT40TA6 PO; +PRAS10TA4 PO; +SUCR1ORA5 PO
== END | disposition home or self-care (01) ==
LOC: CFH 07:27
PROVIDERS: ATTEND Internal Medicine Cardiovascular Disease
DX: I35.8 Other nonrheumatic aortic valve disorders (principal); I11.9 Hypertensive heart disease without heart failure; E78.5 Hyperlipidemia, unspecified; I42.9 Cardiomyopathy, unspecified
CPT/HCPCS: 93306; 93356